=== PATIENT | male | born 1985 | race Caucasian/White ===

== ENCOUNTER 2019-11-14 16:34 | Emergency (ER) | payer MEDICAID, OTHER ==
[2019-11-14] MEDS ORDERED: Aspirin 81 MG Tab.Chew PO ONE (17:21)
[2019-11-14] MEDS ORDERED: Sodium Chloride 0.9% 10 ML Syringe FLUSH PRN (17:21)
--- NOTE | 2019-11-14 18:09 | CR ---
Chest: 2 views of the chest were obtained. Comparison: No prior chest x-ray. Heart size and mediastinum are normal. Lungs are clear with no acute parenchymal change. Bony structures are unremarkable. Impression: 1. Nothing acute is seen on 2 view chest x-ray. Diagnostic code #1 This report was dictated in MDT
--- NOTE | 2019-11-14 18:28 | EDM.PDOC ---
ED HPI GENERAL MEDICAL PROBLEM - General Chief Complaint: Chest Pain Stated Complaint: CHEST PAIN/ HIGH BP Time Seen by Provider: 11/14/19 17:03 Source of Information: Reports: Patient History Limitations: Reports: No Limitations - History of Present Illness INITIAL COMMENTS - FREE TEXT/NARRATIVE: The patient presents with chest pain and elevated blood pressure. This started about 1 week ago. He has no shortness of breath with it. The pain comes and goes and sometimes he wakes up with it. He has no fever, chills, or cough. He was put on HCTZ a week ago but it is still elevated. He has no history of heart disease. He does not smoke. He has no history of hypercholesterolemia. Onset: Gradual Duration: Week(s): Location: Reports: Chest Quality: Reports: Sharp Severity: Moderate Improves with: Reports: None Worsens with: Reports: None Associated Symptoms: Reports: Chest Pain. Denies: Cough, Fever/Chills, Headaches, Nausea/Vomiting, Shortness of Breath Left Chest Pain Score (Numeric/FACES): 3 - Related Data Allergies Allergy/AdvReac Type Severity Reaction Status Date / Time No Known Allergies Allergy Verified 11/14/19 17:01 Home Meds: Home Meds hydroCHLOROthiazide [Hydrochlorothiazide] 12.5 mg PO DAILY 11/14/19 [History] hydroCHLOROthiazide [Hydrochlorothiazide] 25 mg PO DAILY #30 tab 11/14/19 [Rx] Past Medical History - Past Health History Medical/Surgical History: Denies Medical/Surgical History - Past Surgical History Musculoskeletal Surgical History: Reports: Other (See Below) Other Musculoskeletal Surgeries/Procedures:: ankle surgery Social & Family History - Tobacco Use Smoking Status *Q: Never Smoker Second Hand Smoke Exposure: No - Caffeine Use Caffeine Use: Reports: None - Recreational Drug Use Recreational Drug Use: No ED ROS GENERAL - Review of Systems Review Of Systems: See Below Constitutional: Reports: No Symptoms HEENT: Reports: No Symptoms Respiratory: Reports: No Symptoms Cardiovascular: Reports: Chest Pain Endocrine: Reports: No Symptoms GI/Abdominal: Reports: No Symptoms : Reports: No Symptoms Musculoskeletal: Reports: No Symptoms ED EXAM, GENERAL - Physical Exam Exam: See Below Exam Limited By: No Limitations General Appearance: Alert, No Apparent Distress Ears: Normal External Exam Nose: Normal Inspection Throat/Mouth: Normal Inspection Head: Atraumatic Neck: Normal Inspection, Supple, Non-Tender Respiratory/Chest: No Respiratory Distress, Lungs Clear, Normal Breath Sounds Cardiovascular: Regular Rate, Rhythm, No Edema, No Murmur GI/Abdominal: Soft, Non-Tender, No Organomegaly, No Mass Back Exam: Normal Inspection Extremities: Normal Inspection EKG INTERPRETATION EKG Date: 11/14/19 Time: 16:59 Rhythm: NSR Rate (Beats/Min): 66 [place]: Normal P-Wave: Present QRS: Normal ST-T: Normal QT: Normal Course - Vital Signs Last Recorded V/S: Last Vital Signs Temp 97.6 F 11/14/19 16:57 Pulse 64 11/14/19 16:57 Resp 19 11/14/19 16:57 BP 164/111 H 11/14/19 16:57 Pulse Ox 98 11/14/19 16:57 - Orders/Labs/Meds Orders: Active Orders 24 hr Category Date Time Status Cardiac Monitoring [RC] . DIRECTED Care 11/14/19 17:21 Active EKG Documentation Completion [RC] STAT Care 11/14/19 17:22 Active Peripheral IV Care [RC] . DIRECTED Care 11/14/19 17:22 Active Sodium Chloride 0.9% [Saline Flush] Med 11/14/19 17:21 Active 10 ml FLUSH ASDIRECTED PRN Peripheral IV Insertion Adult [OM.PC] Stat Oth 11/14/19 17:21 Ordered Medication Orders Sodium Chloride (Saline Flush) 10 ml FLUSH ASDIRECTED PRN PRN Reason: Keep Vein Open Labs: Laboratory Tests 11/14/19 11/14/19 11/14/19 Range/Units 17:35 17:35 17:35 WBC 8.64 (4.23-9.07) K/mm3 RBC 5.11 (4.63-6.08) M/mm3 Hgb 15.5 (13.7-17.5) gm/dl Hct 45.6 (40.1-51.0) % MCV 89.2 (79.0-92.2) fl MCH 30.3 (25.7-32.2) pg MCHC 34.0 (32.2-35.5) g/dl RDW Std Deviation 42.3 (35.1-43.9) fL Plt Count 223 (163-337) K/mm3 MPV 10.2 (9.4-12.3) fl Neut % (Auto) 60.9 (34.0-67.9) % Lymph % (Auto) 30.0 (21.8-53.1) % [place] % (Auto) 6.6 (5.3-12.2) % Eos % (Auto) 2.0 (0.8-7.0) Baso % (Auto) 0.2 (0.1-1.2) % Neut # (Auto) 5.26 (1.78-5.38) K/mm3 Lymph # (Auto) 2.59 (1.32-3.57) K/mm3 [place] # (Auto) 0.57 (0.30-0.82) K/mm3 Eos # (Auto) 0.17 (0.04-0.54) K/mm3 Baso # (Auto) 0.02 (0.01-0.08) K/mm3 D-Dimer, Quantitative < 0.19 L (0.19-0.50) mg/L Sodium 136 (136-145) mEq/L Potassium 3.7 (3.5-5.1) mEq/L Chloride 101 (98-107) mEq/L Carbon Dioxide 26 (21-32) mEq/L Anion Gap 12.7 (5-15) BUN 24 H (7-18) mg/dL Creatinine 1.2 (0.7-1.3) mg/dL Est Cr Clr Drug Dosing 92.38 mL/min Estimated GFR (MDRD) > 60 (>60) mL/min BUN/Creatinine Ratio 20.0 H (14-18) Glucose 93 (74-106) mg/dL Calcium 9.1 (8.5-10.1) mg/dL Total Bilirubin 0.3 (0.2-1.0) mg/dL AST 25 (15-37) U/L ALT 75 H (16-63) U/L Alkaline Phosphatase 77 (46-116) U/L Troponin I < 0.017 (0.00-0.056) ng/mL Total Protein 7.8 (6.4-8.2) g/dl Albumin 4.0 (3.4-5.0) g/dl Globulin 3.8 gm/dL Albumin/Globulin Ratio 1.1 (1-2) Meds: Medications Generic Name Dose Route Start Last Admin Trade Name Freq PRN Reason Stop Dose Admin Sodium Chloride 10 ml 11/14/19 17:21 Saline Flush FLUSH ASDIRECTED PRN Keep Vein Open Discontinued Medications Generic Name Dose Route Start Last Admin Trade Name Sera PRN Reason Stop Dose Admin Aspirin 324 mg 11/14/19 17:21 11/14/19 17:31 Aspirin PO 11/14/19 17:22 324 mg ONETIME ONE Administration - Re-Assessments/Exams Free Text/Narrative Re-Assessment/Exam: 11/14/19 18:30 I ordered an EKG, CXR, aspirin and labs. His EKG shows a NSR with no acute changes. His CXR looks good. His CBC and CMP look good. His troponin and D- dimer are normal. 11/14/19 18:41 I feel this is more GI related. I will have him take some pepcid daily and up his HCTZ to 25mg. Departure - Departure Time of Disposition: 18:45 Disposition: Home, Self-Care 01 Condition: Good Clinical Impression: Atypical chest pain Hypertension Qualifiers: Hypertension type: essential hypertension Qualified Code(s): I10 - Essential ( primary) hypertension Prescriptions: hydroCHLOROthiazide [Hydrochlorothiazide] 25 mg PO DAILY #30 tab Referrals: Em Olivia, EDISON [Primary Care Provider] - 1 Week Forms: ED Department Discharge Additional Instructions: Take the hydrochlorothiazide 25mg daily. Take pepcid 20mg daily for 2 weeks. Avoid spicy food and alcohol for a couple of weeks. Follow up with your provider. Please return if you are worse. Sepsis Event Note (ED) - Evaluation Sepsis Screening Result: No Definite Risk - Focused Exam Vital Signs: Vital Signs Temp Pulse Resp BP Pulse Ox 11/14/19 16:57 97.6 F 64 19 164/111 H 98 - My Orders Last 24 Hours: My Active Orders 11/14/19 17:21 Cardiac Monitoring [RC] . DIRECTED Sodium Chloride 0.9% [Saline Flush] 10 ml FLUSH ASDIRECTED PRN Peripheral IV Insertion Adult [OM.PC] Stat 11/14/19 17:22 EKG Documentation Completion [RC] STAT Peripheral IV Care [RC] . DIRECTED - Assessment/Plan Last 24 Hours: My Active Orders 11/14/19 17:21 Cardiac Monitoring [RC] . DIRECTED Sodium Chloride 0.9% [Saline Flush] 10 ml FLUSH ASDIRECTED PRN Peripheral IV Insertion Adult [OM.PC] Stat 11/14/19 17:22 EKG Documentation Completion [RC] STAT Peripheral IV Care [RC] . DIRECTED
== END 2019-11-14 18:50 | disposition home or self-care (01) ==
LOC: JD.ED 16:34
DX: R07.89 Other chest pain (principal); I10 Essential (primary) hypertension; Z79.899 Other long term (current) drug therapy
CPT/HCPCS: 36415; 71046; 80053; 84484; 85025; 85379; 93005; 99285; A9270

== ENCOUNTER 2022-05-10 17:42 | Inpatient (IN) | payer MEDICAID ==
[2022-05-10] MEDS ORDERED: Sodium Chloride 0.9% 10 ML Syringe FLUSH PRN (18:04)
[2022-05-10] MEDS ORDERED: Piperacillin/Tazobactam 4.5 GM in Sodium Chloride 0.9% 100 ML IV ONE ×2 (18:16→18:27)
[2022-05-10] MEDS ORDERED: Acetaminophen/oxyCODONE 325-5 MG Tab PO ONE (19:27)
[2022-05-10 19:31] LABS: ESTIMATED GFR 89 mL/min (>60)
[2022-05-10] MEDS ORDERED: Ondansetron 4 MG/2 ML SDV IV PRN (19:47)
[2022-05-10] MEDS ORDERED: Acetaminophen 325 MG Tab PO PRN (19:47)
[2022-05-10] MEDS ORDERED: NS + KCl 20mEq/L 1,000 ML IV SCH (20:00)
[2022-05-10] MEDS ORDERED: Vancomycin 2 GM in Sodium Chloride 0.9% 500 ML IV ONE (21:00)
[2022-05-10] MEDS ORDERED: diphenhydrAMINE 50 MG Cap PO ONE (21:17)
[2022-05-10] MEDS: oxyCODONE 5 MG Tab PO PRN (21:28)
[2022-05-11] MEDS ORDERED: Piperacillin/Tazobactam 4.5 GM in Sodium Chloride 0.9% 100 ML IV SCH ×2
[2022-05-11] MEDS ORDERED: Cetirizine 10 MG Tab PO ONE (00:24)
[2022-05-11] MEDS: hydrOXYzine HCl 10 MG Tab PO PRN ×2 (00:36→20:03)
[2022-05-11] MEDS: Piperacillin/Tazobactam 4.5 GM in Sodium Chloride 0.9% 100 ML IV SCH ×3 (00:36→16:36)
[2022-05-11] MEDS: Enoxaparin 40 MG/0.4 ML Syringe SUBCUT SCH ×2 (07:53→08:20)
[2022-05-11] MEDS: Cetirizine 10 MG Tab PO SCH ×3 (07:53→20:03)
[2022-05-11] MEDS: VANCOmycin 1.25 GM/250 ML 1.25 GM in Premix Bag 1 BAG IV SCH ×2 (07:54→08:21)
[2022-05-11 10:51] LABS: ESTIMATED GFR 73 mL/min (>60)
[2022-05-11] MEDS: VANCOmycin 750 MG/150 ML 750 MG in Premix Bag 1 BAG IV SCH ×2 (14:59→22:28)
[2022-05-11] MEDS: oxyCODONE 5 MG Tab PO PRN (20:46)
[2022-05-12] MEDS: Piperacillin/Tazobactam 4.5 GM in Sodium Chloride 0.9% 100 ML IV SCH ×3 (00:37→19:36)
[2022-05-12] MEDS: VANCOmycin 750 MG/150 ML 750 MG in Premix Bag 1 BAG IV SCH (06:42)
[2022-05-12] MEDS: Enoxaparin 40 MG/0.4 ML Syringe SUBCUT SCH (08:03)
[2022-05-12] MEDS: Cetirizine 10 MG Tab PO SCH ×2 (08:03→23:38)
[2022-05-12] MEDS: hydrOXYzine HCl 10 MG Tab PO PRN ×2 (08:08→17:03)
[2022-05-12 09:03] LABS: ESTIMATED GFR 73 mL/min (>60)
[2022-05-12] MEDS ORDERED: diphenhydrAMINE 50 MG/ML SDV IVPUSH ONE (18:30)
[2022-05-12] MEDS ORDERED: Lidocaine 1% 0 ML ONE (19:05)
[2022-05-12] MEDS ORDERED: Lidocaine 1% 10 ML MDV ONE (19:06)
[2022-05-13] MEDS: Piperacillin/Tazobactam 4.5 GM in Sodium Chloride 0.9% 100 ML IV SCH ×3 (04:32→19:37)
[2022-05-13 08:04] LABS: ESTIMATED GFR 73 mL/min (>60)
[2022-05-13] MEDS: Cetirizine 10 MG Tab PO SCH ×2 (08:16→20:00)
[2022-05-13] MEDS: Enoxaparin 40 MG/0.4 ML Syringe SUBCUT SCH (08:16)
[2022-05-13] MEDS ORDERED: oxyCODONE 5 MG Tab PO PRN (08:24)
[2022-05-13] MEDS: Sodium Chloride 0.9% 1,000 ML IV SCH (11:08)
[2022-05-13] MEDS: diphenhydrAMINE/Zinc Acetate 2% Crm 28.4 GM Tube TOP PRN (15:20)
[2022-05-13] MEDS: hydrOXYzine HCl 10 MG Tab PO PRN (22:08)
[2022-05-14] MEDS: Piperacillin/Tazobactam 4.5 GM in Sodium Chloride 0.9% 100 ML IV SCH ×2 (03:07→13:39)
[2022-05-14] MEDS: diphenhydrAMINE/Zinc Acetate 2% Crm 28.4 GM Tube TOP PRN ×2 (03:08→17:55)
[2022-05-14] MEDS: Cetirizine 10 MG Tab PO SCH ×3 (08:38→20:36)
[2022-05-14] MEDS: Enoxaparin 40 MG/0.4 ML Syringe SUBCUT SCH (08:38)
[2022-05-14] MEDS: Ampicillin/Sulbactam Na 1.5 GM in Sodium Chloride 0.9% 100 ML IV SCH ×2 (14:04→20:33)
[2022-05-14] MEDS: Sodium Chloride 0.9% 1,000 ML IV SCH (20:33)
[2022-05-14] MEDS: hydrOXYzine HCl 10 MG Tab PO PRN (20:49)
[2022-05-15] MEDS: Ampicillin/Sulbactam Na 1.5 GM in Sodium Chloride 0.9% 100 ML IV SCH ×2 (03:11→09:24)
[2022-05-15] MEDS: Enoxaparin 40 MG/0.4 ML Syringe SUBCUT SCH (09:24)
[2022-05-15] MEDS: Cetirizine 10 MG Tab PO SCH (09:25)
== END 2022-05-15 11:29 | disposition home or self-care (01) | DRG 603 ==
LOC: JD.ED 17:42 → JD.MS 19:23
PROVIDERS: ADMIT Internal Medicine; ATTEND Internal Medicine
DX: L03.113 Cellulitis of right upper limb (principal); I10 Essential (primary) hypertension; L01.03 Bullous impetigo; B95.1 Streptococcus, group B, as the cause of diseases classified elsewhere; Z98.890 Other specified postprocedural states; Z79.899 Other long term (current) drug therapy
CPT/HCPCS: 36410; 36415; 80048; 80053; 80202; 83605; 85025; 85027; 86140; 87040; 99284; A9270-GY; J0295; J1200; J1650; J2543; J3370; J3480; J3490; J7030; J7040; Q0163